=== PATIENT | female | born 1965 | race Caucasian/White ===

== ENCOUNTER 2024-11-13 07:52 | Emergency (ER) | payer BC, SELFPAY ==
[2024-11-13] VITALS (8 sets, daily range): BP systolic 110–126; BP diastolic 61–74; PULSE 56–87; RESP 12–22; TEMP 36.2; O2SAT 96–100; BMI 32.9
--- OUTSIDE RECORDS SUMMARY | 2024-11-13 07:54 | XMS_ITS | Clinical Summary ---
Author Organization [facility] Address [address] [place] [id number] Care Team Providers Care Hypo Splasher Name Role Phone Kimberli Castellon [place] Primary Care Provider [phone] Allergies Active Allergy Reactions Criticality Noted Date Comments Jono Inhibitors Cough 05/04/2019 Sulfa (Sulfonamide Antibiotics) Rash 07/19 Medications hydroCHLOROthiazide 25 mg tablet Take 25 mg by mouth. 4 Active atorvastatin (LIPITOR) 20 mg tabletIndications:H yperlipidemia, unspecified hyperlipidemia type Take 1 Tablet (20 mg) by mouth once daily. 90 Tablet 4 4 Active losartan (COZAAR) 50 mg tabletIndications:E ssential hypertension Take 1 Tablet (50 mg) by mouth once daily. 90 Tablet 4 4 Active metoprolol succinate (TOPROL XL) 50 mg sustained-release tabletIndications:E ssential hypertension Take 1 Tablet (50 mg) by mouth once daily. 90 Tablet 4 4 Active furosemide (Lasix) 20 mg tabletIndications:P edal edema Take 1 Tablet (20 mg) by mouth one time if needed (edema). Use for increase edema as needed. 4 Active Active Problems Problem Noted Date Diagnosed Date Pap smear for cervical cancer screening 06/21/19 Overview (06/21/2023): 05/2023 NIL/HPV negative. Plan: Pap/HPV due 05/2028. Hyperlipidemia 03/10/2014 Low back pain 03/05/2014 Other acne 08/13/2006 Unspecified essential hypertension 08/13/2006 Immunizations Immunization Administration Dates Next Due Amb Influenza, IIV4 (Age >= 3 Years) (Flu Clinic Only) 03/11/2023 COVID-19 VACCINE SPIKEVAX (M ODERNA 50MCG/0.5ML) 12YO+ PFS 06/15/2024 COVID-19 vaccine (True[employer]Log[employer]-Bio NTech 30mcg/0.3mL) 12YO+ BIVALENT PF, MDV 12/21/2021 COVID-19 vaccine (Pfizer-Bio NTech 30mcg/0.3mL) PF, MDV 06/28/2020,06/08/2020 Hepatitis A (Adult) 08/13/2006,12/14/2005 Influenza A (H1N1), Inactiva anirudh (Age >=3 Years) 04/26/2009 Influenza RIV4 (Age 18+ Years) PRESERV FREE 07/2018 Influenza Virus, Unspecified 03/12/2024,04/03/20 17 Influenza, IIV3 (Age 6-35 mos) 03/23/2020,2017 Influenza, IIV3 (Age >=3 years) 03/18/2019 Influenza, IIV4 03/14/2022,04/03/2017,03/19/2016 Influenza, IIV4 (=>6mos) MDV 03/15/2021,03/19/20 18 Tdap 04/11/2016,12/14/2005 Zoster (Shingrix-RZV, recombinant) 11/12/2019, Family History Medical History Relation Name Comments Diabetes Brother 1 Ghassan Heart Disease Brother 1 Ghassan [place] Hypertension Brother 1 Ghassan [place], blockage, b ypass, 2013 Hypertension Brother 2 Mina Cancer Father skin Heart Disease Father congestive hea rt failure Hyperlipidemia Father Hypertension Father Cancer Mother uterine with me ts, diagnosed age 52 yr, age 60 Thyroid Disease Mother Graves Diabetes Paternal Aunt Cancer-breast Paternal Grandmother Hypertension Sister ovarian mass Sister benign Relation Name Status Comments Brother 1 Ghassan Alive Brother 2 Mina Alive Father Alive Mother (Age 60) uterine ca ncer, mets Paternal Aunt Paternal Grandmother Sister Social History Tobacco Use Types Packs/Day Years Used Date Smoking Tobacco: Never Smokeless Tobacco: Never Tobacco Cessation:Counseling Given: Yes Alcohol Use Standard Drinks/Week Comments Yes 0 (1 standard drink = 0.6 oz pur e alcohol) 1-2 times per year/ Rare PHQ-2 Answer Date Recorded PHQ-2 TOTAL SCORE 0 06/15/2024 Social Connections Answer Date Recorded Do you often feel lonely or isolated from those around you? 0 06/15/2024 Financial Resource Strain Answer Date R ecorded Difficulty of Paying Living Expenses 3 06/15/2024 Difficulty of Paying Living Expenses Not on file 06/15/2024 Food Insecurity Answer Date Recorded Do you worry your food will run out before you are able to buy more? 1 06/15/2024 Transportation Needs Answer Date Record ed Does lack of transportation keep you from medica l appointments? 1 06/15/2024 Does lack of transportation keep you from work, meetings or getting things that you need? 1 06/15/2024 Housing Stability Answer Date Recorded What is your housing situation today? 1 06/15/2024 Utilities Answer Date Recorded Do you have trouble paying f or utilities (for example, heat, electricity, water, phone)? 1 06/15/2024 Comments No Sex and Gender Information Value Date Recorded Sex Assigned at Not on file Legal Sex Female 5:25 AM PRINCIPAL LAW CLERK Gender Identity Not on file Sexual Orientation Not on file Occupation Industry Job Start Date Job End Date Not on file Not on file Not on file Not on file Obstetrics History Para Term AB IAB SAB Ectopic Multiple Livin g Live Births 3 3 3 3 Date Outcome GA Total Labor Labor/2nd/3rd Weight Sex Type Anes PTL Lilia A1 A5 Name Clin Term Term Term Last Filed Vital Signs Vital Sign Reading Time Taken Comments Blood Pressure 108/72 06/15/2024 12:58 PM PRINCIPAL LAW CLERK Pulse 84 06/15/2024 12:58 PM PRINCIPAL LAW CLERK Temperature 37.6 C (99.6 F) 01/29/2024 1:25 PM CDT Respiratory Rate - - Oxygen Saturation 97% 06/15/2024 12:58 PM PRINCIPAL LAW CLERK Inhaled Oxygen Concentration - - Weight 80.7 kg (178 lb) 06/15/2024 12:58 PM PRINCIPAL LAW CLERK Height 155.9 cm (5' 1.38) 06/15/2024 12:[address] Body Mass Index 33.22 06/15/2024 12:58 PM PRINCIPAL LAW CLERK Plan of Treatment Health Maintenance Due Date Last Done Comments Hepatitis B series for 19+ (1 of 3 - 19+ 3-dose series) 1986 BMI (ht and wt on same day) for age 18+ 06/15/2025 06/15/2024, 06/07/2023, 06/06/2022, Additional history exists Pneumococcal series for age 50+ (1 of 1 - PCV) 06/17/2025 Postponed from 2017 (Provider discretion) Depression screening for age 12+ 07/02/2025 07/02/2024, 06/15/2024, 06/07/2023, Additional history exists Mammogram for age 45-75 07/02/2025 07/02/19, 06/07/2023, 06/06/2022, Additional history exists Tetanus booster 04/11/2026 04/11/2016, 12/14/2005 Pap test for age 21-65 06/07/2028 , 06/07/2023, 05/06/2020, Additional history exists Colonoscopy through age 75 01/16/2029 01/16/2019, Lipids for age 45-75 06/09/2029 06/09/2024, 06/03/2023, 06/05/2022, Additional history exists Tdap Completed 04/11/2016, 12/14/2005 Zoster (shingles) series for age 50+ Completed 11/12/2019, 07/06/2019 HIV for age 15-65 Completed 06/03/2023 Hepatitis C screening for age 18-79 Completed 06/03/2023 Influenza Vaccine Completed 03/12/2024, , 03/14/2022, Additional history exists COVID-19 vaccine series Completed 06/15/20 24, 03/14/2022, 12/21/2021, Additional history exists Procedures Procedure Name Priority Date/Time Associated Diagnosis Comments XR MAMMO GABRIEL BILAT SCREEN Routine 07/02/2024 7:25 AM PRINCIPAL LAW CLERK Visit for screening mammogram LIPID PANEL W REFLEX MEASURED LDL Routine 06/09/2024 7:23 AM PRINCIPAL LAW CLERK Hyperlipidemia, unspecified hyperlipidemia type HPV HIGH RISK Routine 06/07/2023 9:26 AM PRINCIPAL LAW CLERK Screening for cervical cancer ANTI HIV 1/2 Routine 06/03/2023 7:17 AM PRINCIPAL LAW CLERK Screening for HIV (human immunodeficiency virus) ANTI HCV Routine 06/03/2023 7:17 AM PRINCIPAL LAW CLERK Need for hepatitis C screening test COLONOSCOPY 01/16/2019 7:52 AM CDT from Last 3 Months or Most Recently Relevant to Health Maintenance Results * XR MAMMO GABRIEL BILAT SCREEN (07/02/2024 7:25 AM PRINCIPAL LAW CLERK) Anatomical Region Laterality Modality BREASTS, Breast Left, Breast Right Bilateral Mammography Impressions 07/02/2024 2:00 PM PRINCIPAL LAW CLERK There is no radiographic evidence for malignancy. Recommend annual mammograms. MAMMOGRAM ASSESSMENT: ACR 1 Negative PATIENTS: You will also receive a letter with your examination results in an easy to read format. If you have questions about your results, please contact your referring provider. Narrative 07/02/2024 2:00 PM PRINCIPAL LAW CLERK For Patients: As a result of the Century Cures Act, medical imaging exams and procedure reports are released immediately into your electronic medical record. You may view this report before your referring provider. If you have questions, please contact your health care provider. XR MAMMO GABRIEL BILAT SCREEN [[id number]] CLINICAL HISTORY: This is an asymptomatic 59 y.o. patient. INDICATION FOR EXAM: Mammogram Screening. TECHNIQUE: CC & MLO views were obtained. This study was evaluated with the assistance of Computer-Aided Detection. Breast Tomosynthesis was used in interpretation. COMPARISON FILM: Yes 06/07/23 [facility] 06/06/22 [facility] FINDINGS: There are scattered areas of fibroglandular density. There are no dominant masses, suspicious micro calcifications or areas of architectural distortion. us Kimberli Bryson Detert DO MAMMO Final Resul t * LIPID PANEL W REFLEX MEASURED LDL (06/09/2024 7:23 AM PRINCIPAL LAW CLERK) CHOLESTEROL, TOTAL 149 <200 mg/dL [facility] HDL CHOLESTEROL 57 > OR = 50 mg/dL [facility] TRIGLYCERIDES 120 <150 mg/dL [facility] LDL-CHOLESTEROL 71 mg/dL (calc) [facility] Comment: Reference range: <100 Desirable range <100 mg/dL for primary prevention; <70 mg/dL for patients with CHD or diabetic patients with > or = 2 CHD risk factors. LDL-C is now calculated using the Raymond calculation, which is a validated novel method providing better accuracy than the Friedewald equation in the estimation of LDL-C. Albert SS et al. YESSI. 2013;310(40): 6168-7913 (http://education.[employer]/faq/HUO679) CHOL/HDLC RATIO 2.6 <5.0 (calc) [facility] NON HDL CHOLESTEROL 92 <130 mg/dL (calc) [facility] Comment: For patients with diabetes plus 1 major ASCVD risk factor, treating to a non-HDL-C goal of <100 mg/dL (LDL-C of <70 mg/dL) is considered a therapeutic option. Blood BLOOD SPECIMEN / Unknown 06/09/2024 7:23 AM PRINCIPAL LAW CLERK 06/09/2024 7:24 AM PRINCIPAL LAW CLERK us Kimberli Jenningst DO CHEMISTRY Final Resul t I and love and you [facility] [address] [place] [address], [facility] [address] [place] [address] * HPV HIGH RISK (06/07/2023 9:26 AM PRINCIPAL LAW CLERK) TYPE 16 Negative Negative 06/12/2023 10:59 AM PRINCIPAL LAW CLERK [facility] TYPE 18 Negative Negative 06/12/2023 10:59 AM PRINCIPAL LAW CLERK [facility] OTHER HIGH RISK TYPES Negative Negative 06/12/2023 10:59 AM PRINCIPAL LAW CLERK [facility] Other (Cervical) Non-Blood / Unknown 06/07/2023 9:26 AM PRINCIPAL LAW CLERK 06/11/2023 10:31 AM PRINCIPAL LAW CLERK Narrative [facility] - 06/12/2023 10:59 AM PRINCIPAL LAW CLERK HPV types 16, 18, 31, 33, 35, 39, 45, 51, 52, 56, 58, 59, 66 and 68 DNA were undetectable or below the pre-set threshold. Methodology: Yoselyn Ildefonso 4800 HPV Test Kimberli Castellon DO MICROBIOLOGY Final Resul t Performing Organization Address [facility] Co de Phone Number [facility] [address] [place] [phone], [place] * ANTI HCV (06/03/2023 7:17 AM PRINCIPAL LAW CLERK) HEPATITIS C ANTIBODY Non-Reacti ve Non-React stuart 06/03/2023 2:26 PM PRINCIPAL LAW CLERK [facility] Comment:Please note, per www .CDC.gov: If a patient is known to be at high risk of HCV infection, or is symptomatic, and the physician's suspicion of HCV infection is high, HCV RNA testing is often employed and is of diagnostic value, even after an initial negative anti-HCV test result. Blood BLOOD SPECIMEN / Unknown Venipuncture / Unknown 06/03/2023 7:17 AM PRINCIPAL LAW CLERK 06/03/2023 7:17 AM PRINCIPAL LAW CLERK Kimberli Castellon DO SEND OUTS Final Resul t Performing Organization Address City/[facility]/ZIP Co de Phone Number [facility] [address] [place] [address], [place] * ANTI HIV 1/2 [16139.0] (06/03/2023 7:17 AM PRINCIPAL LAW CLERK) HIV-1/HIV-2 SCREEN Non-Reacti ve Non-Reacti ve 06/03/2023 2:21 PM PRINCIPAL LAW CLERK [facility] Comment:HIV-1 p24 and HIV-1/ HIV-2 Ab Not Detected. Blood BLOOD SPECIMEN / Unknown Venipuncture / Unknown 06/03/2023 7:17 AM PRINCIPAL LAW CLERK 06/03/2023 7:17 AM PRINCIPAL LAW CLERK Kimberli Castellon DO SEND OUTS Final Resul t [facility] [address] [place] [address], [place] * COLONOSCOPY (01/16/2019 7:52 AM CDT) 01/16/2019 7:52 AM CDT Narrative Transcriptions Albert Beckwith MD - 01/16/2019 9:55 AM CDT Patient Name: Risa Hart Procedure Date: 01/16/2019 Gender: Female Date of : 1965 Admit Type: Outpatient Procedure: Colonoscopy Proceduralist: Albert Beckwith MD , Jaqueline Aguirre (Nurse) Indications/Pre-Op Diagnosis: Screening for colorectal malignant neoplasm, This is the patient's first colonoscopy Medications: Fentanyl 100 micrograms IV, Midazolam 4 mgIV, The level of sedation administered wasmoderate Procedure Description: The patient had risks, benefits and alternatives explained to andgave informed consent. The patient had a stable cardiopulmonary status and judged an adequate candidate for conscious sedation. The Colonoscope was passed through the anus and advanced to 6 cm into the ileum. The colonoscopy was performed without difficulty. Thepatient tolerated the procedure well. The quality of the bowel preparationwas good. The terminal ileum, ileocecal valve, appendiceal orifice, and rectum were photographed. Complications: No immediate complications. Estimated Blood Loss & Specimen: Estimated blood loss: none. Specimen collected - Yes and sent to Laboratory Findings: The perianal and digital rectal examinations were normal. The terminal ileum appeared normal. Multiple three mm ulcers were found in the entire colon. No bleedingwas present. No stigmata of recent bleeding were seen. Biopsies weretaken with a cold forceps for histology. The intervening mucosa was normal. The appearance was that of Nsaid induced ulceration. The exam was otherwise without abnormality on direct and retroflexion views. Impressions/Post-Op Diagnosis: - The examined portion of the ileum was normal. - Multiple ulcers in the entire examined colon. Biopsied. - The examination was otherwise normal on direct and retroflexionviews. Recommendation: - Patient has a contact number available for emergencies. The signsand symptoms of potential delayed complications were discussed with the patient. Return to normal activities tomorrow. Written discharge instructions were provided to the patient. - Resume previous diet. - Continue present medications. - Await pathology results. - Repeat colonoscopy in 10 years for screening purposes. Moderate Sedation: Moderate (conscious) sedation was administered by the endoscopy nurse and supervised by the endoscopist. The following parameters were monitored: oxygen saturation, heart rate, respiratory rate, blood pressure, adequacy of pulmonary ventilation and reponse to care. [facility] and nursing notes for moderate sedation details. Total physician intraservice time was 29 minutes. Albert Beckwith MD 01/16/2019 9:55:06 AM This report has been signed electronically. Note Initiated On: 01/16/2019 7:52 AM Procedure Code(s): --- Professional --- 94783, Colonoscopy, flexible; with biopsy, single or multiple Diagnosis Code(s): --- Professional --- Z12.11, Encounter for screening formalignant neoplasm of colon K63.3, Ulcer of intestine CPT copyright 2018 [employer]. All rights reserved. The codes documented in this report are preliminary and upon medical billing coder reviewmay be revised to meet current compliance requirements. Scope In: 9:15:08 AM Scope Withdrawal Time 0 hours 18 minutes 31 seconds Scope Out: 9:41:30 AM us Albert Beckwith MD PROCEDURE ORD Final Res ult from Last 3 Months or Most Recently Relevant to Health Maintenance Insurance [facility] Care Teams Hypo Splasher Relationship Specialty Start Date End Date Kimberli Castellon DO [address] [place] [address] PCP - General Family Practice 10/24/18
--- NOTE | 2024-11-13 08:24 | CRLHL7_ITS ---
For Patients: As a result of the Century Cures Act, medical imaging exams and procedure reports are released immediately into your electronic medical record. You may view this report before your referring provider. If you have questions, please contact your health care provider. INDICATION: Persistent dizziness. TECHNIQUE: CTA head with contrast bolus tracking, 3D angiographic rendering using maximum intensity projection (MIP) and images permanently archived. FINDINGS: There is normal opacification of the intracranial vasculature. There is no large vessel occlusion. No aneurysm is identified. IMPRESSION: No acute intracranial abnormality at CTA. Please note that all CT scans at this facility use dose modulation, iterative reconstruction, and/or weight-based dosing when appropriate to reduce radiation dose to as low as reasonably achievable. Dictated by Sang Uriostegui MD @ 11/13/2024 11:47:18 AM (Electronically Signed)
--- NOTE | 2024-11-13 08:24 | CRLHL7_ITS ---
For Patients: As a result of the Century Cures Act, medical imaging exams and procedure reports are released immediately into your electronic medical record. You may view this report before your referring provider. If you have questions, please contact your health care provider. INDICATION: Persistent dizziness. TECHNIQUE: CTA neck with contrast bolus tracking, 3D angiographic rendering using maximum intensity projection (MIP) and images permanently archived. FINDINGS: There is no significant carotid artery stenosis or dissection. There is no significant vertebral artery stenosis or dissection. The soft tissues of the neck are within normal limits. The cervical spine is in normal alignment. IMPRESSION: Unremarkable neck CTA. No significant carotid or vertebral artery stenosis or dissection. Please note that all CT scans at this facility use dose modulation, iterative reconstruction, and/or weight-based dosing when appropriate to reduce radiation dose to as low as reasonably achievable. Dictated by Sang Uriostegui MD @ 11/13/2024 11:48:46 AM (Electronically Signed)
--- NOTE | 2024-11-13 08:25 | CRLHL7_ITS ---
For Patients: As a result of the Century Cures Act, medical imaging exams and procedure reports are released immediately into your electronic medical record. You may view this report before your referring provider. If you have questions, please contact your health care provider. INDICATION: Persistent dizziness for 12 hours. COMPARISON: 10/26/2013 TECHNIQUE: CT of the brain / head without intravenous contrast. Multiplanar axial, coronal, and sagittal reformats were reconstructed. FINDINGS: No intracranial hemorrhage. Normal appearance of the white matter. No acute or subacute cortically based infarct. No cerebral edema. No mass or mass effect. Normal ventricles. No skull fractures. No worrisome focal bone lesion. Mastoids and middle ears are normal. IMPRESSION: Normal head CT. Please note that all CT scans at this facility use dose modulation, iterative reconstruction, and/or weight-based dosing when appropriate to reduce radiation dose to as low as reasonably achievable. Dictated by Oralia Amaya MD @ 11/13/2024 10:16:05 AM (Electronically Signed)
--- NOTE | 2024-11-13 08:29 | ED.GENADULT ---
HPI - General Adult General Date Seen: 11/13/24 Chief complaint: Dizziness/Vertigo Stated complaint: Dizziness, vomiting Time Seen by Provider: 11/13/24 08:05 Source: patient Mode of arrival: ambulatory Limitations: no limitations History of Present Illness HPI narrative: Patient is a 59-year-old female with a history of hypertension, hyperlipidemia presenting to the emergency department for dizziness and nausea. States started about 21:00 last night she had a sudden onset of dizziness. She states she feels like the entire room is spinning. Sensation has not been going away And has actually gotten worse. She tried to go to work the some unable was unable to. The dizziness is causing her to vomit several times. Dizziness seems to get a little bit better when she lays completely still and closes her eyes but never goes fully away. Movement does make her symptoms worse. Does states she had dizziness like this several years ago when she was put on lisinopril and resolved after she was taken off the lisinopril. Denies any recent medication changes. denies fevers, chills, vision changes, headache, hearing changes, shortness of breath, chest pain, abdominal pain, weakness, numbness. She does feel like her heart is racing currently. Related Data Home Medications ?Medication ?Instructions ?Recorded ?Confirmed atorvastatin 20 mg tablet 20 mg PO DAILY 11/13/24 11/13/24 hydrochlorothiazide 25 mg tablet 25 mg PO DAILY 11/13/24 11/13/24 losartan 50 mg tablet 50 mg PO DAILY 11/13/24 11/13/24 metoprolol succinate 50 mg 50 mg PO DAILY 11/13/24 11/13/24 tablet,extended release 24 hr Previous Rx's ?Medication ?Instructions ?Recorded meclizine 25 mg tablet 25 mg PO QID #20 tabs 11/13/24 ondansetron 4 mg disintegrating 4 mg PO Q6H #20 tabs 11/13/24 tablet Allergies Allergy/AdvReac Type Severity Reaction Status Date / Time SULFA Allergy Mild Unknown Uncoded 12/29/21 09:51 Review of Systems Status of ROS: Reports: 10 or more systems reviewed and unremarkable except as noted in History and below Exam Narrative: Exam Narrative: Const: Well-nourished, Well-developed, in moderate distress Eyes: PERRL, no conjunctival injection, and symmetrical lids HENT: Atraumatic external nose and ears. Moist mucous membranes. Neck: Symmetric, trachea midline, No thyromegaly. CVS: RRR, No murmurs or gallops. Peripheral pulses 2+ and equal in all extremities RESP: Unlabored respiratory effort. Clear to auscultation bilaterally. GI: Nontender/Nondistended, No rebound or guarding. MSK:Extremities w/o deformity, Normal Active ROM Skin: Warm, Dry. No rashes or lesions. Neuro: Normal Muscle tone, Cranial nerves 2-12 grossly intact, normal [id number], normal [id number], normal gait, normal strength 5/5 upper lower extremities bilaterally, normal sensation upper and lower extremities bilaterally, normal rapid alternating movements. Psych: Awake, Alert, & Oriented x3. Appropriate mood and affect. Const: Vital Signs, click to edit/add: Vital Signs - 24 hr 11/13/24 08:02 11/13/24 09:30 11/13/24 09:45 Temperature 97.2 F L Pulse Rate 56 L Pulse Rate [Pulse Oximeter] 87 58 L Respiratory Rate 18 16 22 Blood Pressure Blood Pressure [Ri ght Upper Arm] 126/74 120/66 Pulse Oximetry 97 99 100 Oxygen Delivery Me thod Room Air Room Air 11/13/24 10:21 11/13/24 10:32 11/13/24 11:02 Temperature Pulse Rate 60 61 56 L Pulse Rate [Pulse Oximeter] Respiratory Rate 12 18 Blood Pressure 116/64 110/61 115/65 Blood Pressure [Ri ght Upper Arm] Pulse Oximetry 99 96 98 Oxygen Delivery Me thod 11/13/24 11:30 11/13/24 11:45 Temperature Pulse Rate 67 65 Pulse Rate [Pulse Oximeter] Respiratory Rate 14 15 Blood Pressure Blood Pressure [Ri ght Upper Arm] Pulse Oximetry 98 99 Oxygen Delivery Me thod Course Vital Signs Vital signs: Initial Vital Signs Temperature 97.2 F L 11/13/24 08:02 Temperature Source Temporal Artery Scan 11/13/24 08:02 Pulse Rate 87 11/13/24 08:02 Respiratory Rate 18 11/13/24 08:02 Blood Pressure 126/74 11/13/24 08:02 Blood Pressure Mean 91 11/13/24 08:02 Pulse Oximetry 97 11/13/24 08:02 Oxygen Delivery Method Room Air 11/13/24 08:02 Vital Signs Temperature 97.2 F L 11/13/24 08:02 Pulse Rate 87 11/13/24 08:02 Respiratory Rate 18 11/13/24 08:02 Blood Pressure 126/74 11/13/24 08:02 Pulse Oximetry 97 11/13/24 08:02 Oxygen Delivery Method Room Air 11/13/24 08:02 Temperature 97.2 F L 11/13/24 08:02 Pulse Rate 65 11/13/24 11:45 Respiratory Rate 15 11/13/24 11:45 Blood Pressure 115/65 11/13/24 11:02 Pulse Oximetry 99 11/13/24 11:45 Oxygen Delivery Method Room Air 11/13/24 09:30 Medications Administered Medications: Discontinued Medications Generic Name Dose Route Start Last Admin Trade Name Axel PRN Reason Stop Dose Admin Lactated Ringer's 1,000 mls @ 1,000 mls/hr 11/13/24 08:24 11/13/24 11:42 Lactated Ringers 1000 Ml IV 11/13/24 09:23 Infused .Q1H ONE Infusion Meclizine HCl 25 mg 11/13/24 08:24 11/13/24 08:32 Meclizine Hcl 25 Mg Tablet PO 11/13/24 08:25 25 mg ONCE ONE Administration Ondansetron HCl 4 mg 11/13/24 08:29 11/13/24 09:35 Ondansetron 2 Mg/Ml Inj IVP 11/13/24 08:30 4 mg ONCE ONE Administration Medical Decision Making MDM Narrative Medical decision making narrative: patient is a 59-year-old female presenting to the emergency department for dizziness. The differential diagnosis of vertigo is broad and includes common etiologies such as menieres disease, labyrinthitis, benign positional vertigo, otitis media, etc. More serious etiologies considered include central etiologies such as tumor, intracerebral bleed, dissection, ischemic cerebral vascular accident. I do have a higher concern for central cause considering her length of symptoms and that they are persistent. I will do a CT Head, CTA head and neck and MRI brain. in the meantime will also check an EKG to look for signs of AFib were other abnormalities along with a CBC, BMP. Also try given the patient some Zofran for nausea along with a L of fluids given some meclizine to see if that helps with her symptoms while we wait for imaging. Patient's lab work shows no concerning abnormalities. CT and CTA is reviewed by myself the radiologist showing no concerning abnormalities. Patient has started have some improvement in her symptoms states the nausea is gone. Overall she does look better too. Will still do this MRI to rule out any strokes. MRI is done and shows no acute concerning abnormalities. She states she feels much better at this time and only has some slight dizziness when she looks up and down. No dizziness when she looks left or right. I asked if she wants to stay still for the Ad's maneuver but she states she would like to be discharged and feels comfortable to go home. On my review vital signs are stable throughout time in in the emergency department. Oximetry stayed in the mid to high 90s. threat monitoring analyst showed no concerning arrhythmias. She will be discharged with meclizine and Zofran. Lab Data Labs: Lab Results 11/13/24 11/13/24 Range/Units 08:25 09:05 WBC 10.51 (4.50-11.00) K/uL RBC 4.44 (4.00-5.20) m/uL Hgb 13.3 (12.0-16.0) gm/dL Hct 38.4 (33.0-51.0) % MCV 87 (80-100) fL MCH 30 (26-34) pg MCHC 35 (32-36) gm/dL RDW Coeff of Mary 12.5 (11.5-15.5) % Plt Count 243 (140-440) K/uL Neut % (Auto) 71.8 (42.0-72.0) % Lymph % (Auto) 18.5 L (20-44) % Smith % (Auto) 7.8 (0.0-11.0) % Eos % (Auto) 1.2 (0.0-7.0) % Baso % (Auto) 0.4 (0.0-3.0) % Neut # (Auto) 7.55 H (1.7-7.0) K/uL Lymph # (Auto) 1.90 (0.90-2.90) K/uL Smith # (Auto) 0.80 (0.00-0.90) K/UL Eos # (Auto) 0.13 (0.00-0.50) K/uL Baso # (Auto) 0.04 (0.00-0.30) K/uL Abs Immat Gran (auto) 0.03 (0.00-0.30) K/uL Imm/Tot Granulo (auto) 0.3 % Sodium 138 (135-149) mmol/L Potassium 3.3 L (3.6-5.1) mmol/L Chloride 102 (96-114) mmol/L Carbon Dioxide 27 (20-32) mmol/L Anion Gap 9 (7-15) mEq/L BUN 15 (7-30) mg/dL Creatinine 0.9 (0.5-1.5) mg/dL Estimated Creat Clear 52.04 Estimated GFR 75 ml/min Glucose 102 (60-115) mg/dL Calcium 9.8 (8.4-10.6) mg/dL POC Creatinine 1.0 (0.6-1.3) mg/dl Imaging Data CT scan head: Attestation: I have reviewed the pertinent imaging results. Radiologist's impression: Normal head CT. Please note that all CT scans at this facility use dose modulation, iterative reconstruction, and/or weight-based dosing when appropriate to reduce radiation dose to as low as reasonably achievable. Dictated by Oralia Amaya MD @ 11/13/2024 10:16:05 AM CTA head: Attestation: I have reviewed the pertinent imaging results. Radiologist's impression: No acute intracranial abnormality at CTA. Please note that all CT scans at this facility use dose modulation, iterative reconstruction, and/or weight-based dosing when appropriate to reduce radiation dose to as low as reasonably achievable. Dictated by Sang Uriostegui MD @ 11/13/2024 11:47:18 AM CTA neck: Attestation: I have reviewed the pertinent imaging results. Radiologist's impression: Unremarkable neck CTA. No significant carotid or vertebral artery stenosis or dissection. Please note that all CT scans at this facility use dose modulation, iterative reconstruction, and/or weight-based dosing when appropriate to reduce radiation dose to as low as reasonably achievable. Dictated by Sang Uriostegui MD @ 11/13/2024 11:48:46 AM MRI brain: Radiologist's impression: 1. No acute/subacute infarct. 2. Few scattered nonspecific T2 FLAIR hyperintense white matter foci. Differential considerations include sequela of migraine headaches or chronic ischemic microvascular disease. Dictated by Niko Damon MD @ 11/13/2024 12:41:08 PM ECG Data Attestation: I personally reviewed and interpreted this ECG as follows: Interpretation: Normal sinus rhythm with a rate of 66 beats per minute, normal intervals, normal axis, no ST or T-wave abnormalities Discharge Plan Discharge Clinical Impression: Dizziness Patient Disposition: Home, Self-Care Condition: Stable Instructions: Dizziness (ED) Additional Instructions: I believe your dizziness is caused by an inner ear issue. Take the meclizine as prescribed to help with the dizziness and use the Zofran as needed. I do recommend following up with your primary care provider. Return to emergency department for new or worsening symptoms Prescriptions: New meclizine 25 mg tablet 25 mg PO QID Qty: 20 0RF ondansetron 4 mg tablet,disintegrating 4 mg PO Q6H Qty: 20 0RF No Action losartan 50 mg tablet 50 mg PO DAILY atorvastatin 20 mg tablet 20 mg PO DAILY metoprolol succinate 50 mg tablet extended release 24 hr 50 mg PO DAILY hydrochlorothiazide 25 mg tablet 25 mg PO DAILY Follow Up/Referrals: Provider,Not a Local [Non-Staff, Family Practice] Stand Alone Forms: MyHealth Info Instructions
--- NOTE | 2024-11-13 08:31 | CRLHL7_ITS ---
For Patients: As a result of the Century Cures Act, medical imaging exams and procedure reports are released immediately into your electronic medical record. You may view this report before your referring provider. If you have questions, please contact your health care provider. Indication: Dizziness. Technique: Multiplanar, multisequence MRI of the brain was performed without intravenous contrast. Comparison: CT head 11/13/2024. Findings: The corpus callosum in clivus appear intact. Partly empty sella morphology. Craniocervical junction appears preserved. There is no restricted diffusion. No intracranial hemorrhage. The ventricles are proportionate to the cerebral sulci. The 4th ventricle appears midline. The basal cisterns appear patent. No abnormal extra-axial fluid collection identified. Few scattered nonspecific T2 FLAIR hyperintense white matter foci. There is no intracranial mass, abnormal mass-effect or midline shift identified. Major intracranial vascular flow voids appear grossly intact. Both globes are preserved. Impression: 1. No acute/subacute infarct. 2. Few scattered nonspecific T2 FLAIR hyperintense white matter foci. Differential considerations include sequela of migraine headaches or chronic ischemic microvascular disease. Dictated by Niko Damon MD @ 11/13/2024 12:41:08 PM (Electronically Signed)
[2024-11-13] MEDS: MECLIZINE HCL 25 MG TABLET PO (08:32)
[2024-11-13] MEDS: ONDANSETRON 2 MG/ML inj 4 MG IVP (09:35)
[2024-11-13 09:40] LABS: Basophils Absolute Auto 0.04 K/uL (0.00-0.30); Basophils Percent Auto 0.4 % (0.0-3.0); Eosinophils Absolute Auto 0.13 K/uL (0.00-0.50); Eosinophils Percent Auto 1.2 % (0.0-7.0); Hematocrit 38.4 % (33.0-51.0); Hemoglobin* 13.3 gm/dL (12.0-16.0); Immature Granulocytes Abs Auto 0.03 K/uL (0.00-0.30); Immature Granulocytes Pct Auto 0.3 %; Lymphocytes Percent Auto 18.5 % (20-44); Mean Corpuscular HGB Conc 35 gm/dL (32-36); Mean Corpuscular Hemoglobin 30 pg (26-34); Mean Corpuscular Volume 87 fL (80-100); Monocytes Percent Auto 7.8 % (0.0-11.0); Neutrophils Absolute Auto 7.55 K/uL (1.7-7.0); Neutrophils Percent Auto 71.8 % (42.0-72.0); Platelet Count* 243 K/uL (140-440); RDW Coefficient of Variation % 12.5 % (11.5-15.5); Red Blood Count 4.44 m/uL (4.00-5.20); White Blood Count* 10.51 K/uL (4.50-11.00)
[2024-11-13 09:45] LABS: Slide Review Reflex No
[2024-11-13 10:01] LABS: Chloride* 102 mmol/L (96-114); Potassium* 3.3 mmol/L (3.6-5.1); Sodium* 138 mmol/L (135-149)
[2024-11-13 10:04] LABS: Blood Urea Nitrogen* 15 mg/dL (7-30); Creatinine* 0.9 mg/dL (0.5-1.5); Est. Creatinine Clearance* 52.04; Estimated Glomerular Filt Rate 75 ml/min
[2024-11-13 10:05] LABS: Anion Gap 9 mEq/L (7-15); Calcium* 9.8 mg/dL (8.4-10.6); Carbon Dioxide* 27 mmol/L (20-32); Glucose* 102 mg/dL (60-115)
[2024-11-13] MEDS: LACTATED RINGERS 1000 ML 1,000 ML IV (10:42)
== END 2024-11-13 13:11 | disposition home or self-care (01) ==
PROVIDERS: Emergency Provider Student in an Organized Health Care Education/Training Program; PCP Family Medicine
DX: R42 Dizziness and giddiness (principal); I10 Essential (primary) hypertension; E78.5 Hyperlipidemia, unspecified; R11.0 Nausea; R00.0 Tachycardia, unspecified
CPT/HCPCS: 36415; 70450; 70496; 70498; 70551; 80048; 82565; 85025; 93005; 99284; 99285; A9270; J2405; J7120; Q9967